=== PATIENT | male | born 1950 | race Caucasian/White ===

== ENCOUNTER 2019-09-20 03:17 | Emergency (ER) | payer OTHER ==
--- OUTSIDE RECORDS SUMMARY | 2019-09-20 03:19 | XMS REPORT ---
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
--- OUTSIDE RECORDS SUMMARY | 2019-09-20 03:19 | XMS REPORT | Continuity of Care Document ---
:1950 Author Organization [facility] t Address [address] [place] [address] Care Team Providers Name Role Phone Unavailable Unavailable Unavailable Problems Condition Condition Condition Status Onset Resolution Last Treating Co mments Source Name Details Category Date Date Treatment Clinician Date HTN HTN Problem Active [facility]hypertens Tat[facility]na kes - ion) [facility] Reflux Reflux [facility]porary Temporary Problem Active [facility] low low [facility] platelet platelet [facility] count count [facility] Elevated Elevated Problem Active [facility] random random [facility] - blood blood [facility] glucose glucose l level level Outpati ent Clinics Nocturia Nocturia Problem [facility] Benign Benign Problem Active [facility] prostatic prostatic [facility] - hyperplasi hyperplasi Me moria a with a with l lower [facility] tract Clinics symptoms symptoms Symptomati Symptomati Problem Active [facility] spider c spider [facility] varicose varicose [facility] vein vein [facility]ics High High Problem Active [facility] cholestero cholestero Tatian[place] kes - l l [facility]ics Type 2 Type [address] [facility] diabetes diabetes [facility] - mellitus mellitus [facility] a without without l complicati complicati Ou tpati on, on, ent without without Clinics long-term long-term current current use of use of insulin insulin Eosinophil Eosinophil Problem Active [facility] Allergies, Adverse Reactions, Alerts This patient has no known allergies or adverse reactions. Medications Ordered Filled Start Stop Current Ordering Indication Dosage Frequency Signature Comments Components Source Medication Medication Date Date Medication? Clinician (SIG) Name Name Lecithin Lecithin Yes Na Light as [facility] Cozaar Cozaar Yes Na Light 1.[address] [facility] Zocor Zocor Yes Na Light [address] [facility] in the [facility] - evening [facility] Terazosin Terazosin Yes Na Light [address] [facility] HCl HCl [facility] Omeprazole Omeprazole Yes Na Light [address] [facility] Flaxseed Flaxseed Yes Na Light as [facility] Oil Oil directed [facility] Glucosamine Glucosamine Yes Na Light [address] [facility] with a [facility] - meal [facility] Saw Saw Yes Na Light [address] [facility] [place] [facility] - directed [facility]ics Multi For Multi For Yes Na Light as [facility] Him 50+ Him 50+ directed [facility] Beta Beta Yes Na Light as [facility] Carotene Carotene directed [place] - [facility] N[place] Yes Na Light as [facility] (Urtica (Urtica directed [facility] - [place]) [place]) [facility] Vitamin B Vitamin B Yes Na Light as [facility] Complex Complex directed [facility] Potassium Potassium Yes Na Light [address] [facility] Vitamin E Vitamin E Yes Na Light [address] [facility] Magnesium Magnesium Yes Na Light [address] [facility] with a [facility] - meal [facility] Vitamin D3 Vitamin D3 Yes Na Light [address] [facility] MSM MSM Yes Na Light as [facility] Vitamin C Vitamin C Yes Na Light [address] [facility] Procedures This patient has no known procedures. Encounters Start End Encounter Admission Attending Care Care Encounter Source Date/Time Date/Time Type Type Clinicians Facility Department ID 2019-08-28 2019-08-28 Outpatient Dre Snow [id number] [facility] 09:23:00 09:23:00 t [employer] [place] [facility] - [facility] Medicine Outpati ent Clinics 2019-05-11 2019-05-11 [facility] [id number] [facility] 14:20:00 14:20:00 t Roby Roby [employer] s - Drive [facility] Medicine Outpati ent Clinics 2019-04-26 2019-04-26 [facility] [id number] [facility] 16:27:00 16:27:00 t [facility]y [employer] - [facility] Medicine Outpati ent Clinics 2019-04-12 2019-04-12 [facility] [id number] [facility] 11:39:00 11:39:00 t [place]y [employer] [facility] - [facility] Medicine Outpati ent Clinics 2019-01-12 2019-01-12 [facility] [id number] [facility] 13[facility]40:00 13:40:00 t [employer] - [facility] Medicine Outpati ent Clinics 2018-10-13 2018-10-13 [facility] [id number] [facility] 14[facility]30:00 14:30:00 t Roby [employer] [facility] - [facility] Medicine Outpati ent Clinics 2018-10-13 2018-10-13 [facility] [id number] 14:00:00 14:00:00 t Roby [employer] [facility] Medicine Outpati ent Clinics 2018-10-04 2018-10-04 [facility] [id number] 13:32:00 13:32:00 t Roby [employer] [facility] Medicine Outpati ent Clinics 2018-04-14 2018-04-14 [facility] [id number] [facility] 14:00:00 14:00:00 t Roby [employer] [facility] - [facility] Medicine Outpati ent Clinics Results This patient has no known results.
[2019-09-20 04:00] LABS: Absolute Lymphocytes (CBC) 1.1 K/uL (0.7-4.9); Basophils % 0.6 % (0-1.3); Hematocrit 39.7 % (39.6-49.0); Lymphocytes % 12.6 % (15.3-44.8); RBC Red Blood Cell Count 4.41 M/uL (4.33-5.43)
[2019-09-20 04:09] LABS: Albumin 4.2 g/dL (3.4-5.0); Bilirubin Direct 0.2 mg/dL (0-0.2); Bilirubin Total 0.7 mg/dL (0.2-1.0); Potassium 3.8 mmol/L (3.5-5.1); Protein, Total 7.5 g/dL (6.4-8.2)
[2019-09-20] MEDS ORDERED: ONDANSETRON 4 MG/2 ML VIAL ONE (04:33)
[2019-09-20] MEDS ORDERED: MORPHINE 4 MG/ML SYR ONE (04:33)
[2019-09-20 04:53] LABS: Urine Blood NEGATIVE (NEG); Urine Glucose NEGATIVE (NEG); Urine Protein NEGATIVE (NEG); Urine pH 5.5 (5.0-7.0)
--- NOTE | 2019-09-20 08:49 | ER ---
Nurse's Notes [facility] Name: Edgardo Ruiz Age: 69 yrs Sex: Male : 1950 Arrival Date: 09/20/2019 Time: 03:21 Bed 5 Private MD: Diagnosis: Abdominal and pelvic pain;Unilateral inguinal hernia, without obstruction or gangrene, not specified as recurrent Presentation: 09/19 03:40 Chief complaint: Patient states: he's been having some mild abdominal pain since Wednesday bb which has worsened and now is on his right side as well denies diarrhea but has vomited several times the pain is getting worse he was unable to lie down and get comfortable tonight, denies dysuria. Coronavirus screen: At this time, the client does not indicate any symptoms associated with coronavirus-19. Ebola Screen: No symptoms or risks identified at this time. Initial Sepsis Screen: Does the patient meet any 2 criteria? No. Patient's initial sepsis screen is negative. Does the patient have a suspected source of infection? No. Patient's initial sepsis screen is negative. Risk Assessment: Do you want to hurt yourself or someone else? Patient reports no desire to harm self or others. Onset of symptoms was September 18, 2019. 03:40 Method Of Arrival: Ambulatory bb 03:40 Acuity: JOSE L 3 bb Triage Assessment: 03:46 General: Appears in no apparent distress. uncomfortable. bb Historical: - Allergies: 03:46 No Known Allergies; bb - Home Meds: 03:46 simvastatin 40 mg Oral tab 1 tab once daily [Active]; omeprazole 20 mg Oral cpDR 1 cap bb once daily [Active]; losartan potassium 75 mg daily [Active]; terazosin 2 mg oral cap 1 cap three times a day [Active]; B-12 daily [Active]; Feosol Oral [Active]; - PMHx: 03:46 Hypertension; Hyperlipidemia; bb 09:00 Low platelets; aa5 - PSHx: 03:48 Hernia repair; right hydrocele; bb - Immunization history:: Adult Immunizations unknown. - Social history:: Smoking status: Patient denies any tobacco usage or history of. Patient/guardian denies using alcohol. Screenin:44 Abuse screen: Denies threats or abuse. Denies injuries from another. Nutritional rr5 screening: No deficits noted. Tuberculosis screening: No symptoms or risk factors identified. Fall Risk IV access (20 points). Total Mcclure Fall Scale indicates No Risk (0-24 pts). Assessment: 03:44 General: Appears in no apparent distress. uncomfortable, Behavior is calm, cooperative, rr5 appropriate for age. Pain: Complains of pain in right upper quadrant Pain radiates to anterior aspect of right lateral abdomen Pain Quality of pain is described as aching, Pain began gradually, Is intermittent. Neuro: Level of Consciousness is awake, alert, obeys commands, Oriented to person, place, time, situation. Cardiovascular: Capillary refill < 3 seconds Patient's skin is warm and dry. Respiratory: Airway is patent Respiratory effort is even, unlabored, Respiratory pattern is regular, symmetrical. GI: Abdomen is round non-distended, Bowel sounds Abd is soft and non tender Reports upper abdominal pain, vomiting. : Denies burning with urination, pain. EENT: No signs and/or symptoms were reported regarding the EENT system. Derm: Skin is intact, is healthy with good turgor, Skin temperature is warm. Musculoskeletal: Circulation, motion, and sensation intact. Capillary refill < 3 seconds. 04:29 Reassessment: pt is A\T\O x 4, appears in pain medicated see MAR pt transported to CT via bb stretcher with distribution field technician. 04:47 Reassessment: Patient appears in no apparent distress at this time. Patient is alert, rr5 oriented x 3, equal unlabored respirations, skin warm/dry/pink. awaiting for CT result Patient states symptoms have improved. 05:45 Reassessment: Patient appears in no apparent distress at this time. Patient and/or rr5 family updated on plan of care and expected duration. Pain level reassessed. Patient is alert, oriented x 3, equal unlabored respirations, skin warm/dry/pink. reassessment done by ED provider explained the result of CT scan, to be seen by provider bertha. 06:30 Reassessment: Patient appears in no apparent distress at this time. Patient and/or rr5 family updated on plan of care and expected duration. Pain level reassessed. Patient is alert, oriented x 3, equal unlabored respirations, skin warm/dry/pink. 07:40 Reassessment: Patient is alert, oriented x 3, equal unlabored respirations, skin aa5 warm/dry/pink. Pt sitting up on chair, pt states he is uncomfortable on stretcher. Pt notified of wait time to be evaluated by Dr. Perez (General surgeon), pt verbalizes understanding. . 07:45 Reassessment: Pt ambulatory to restroom. . aa5 07:50 Reassessment: Dr. Perez looking for pt, Dr. Perez notified pt is in restroom at aa5 this time. . 08:24 Reassessment: Dr. Perez at bedside speaking with pt. . aa5 09:00 Reassessment: Patient is alert, oriented x 3, equal unlabored respirations, skin aa5 warm/dry/pink. To bedside to d/c pt home, pt states he cannot take ibuprofen or NSAIDS due to hx of low platelets. Dr. Villanueva notified. . 09:15 Reassessment: DR. Villanueva at bedside speaking to pt. . aa5 09:33 Reassessment: Patient is alert, oriented x 3, equal unlabored respirations, skin aa5 warm/dry/pink. Vital Signs: 03:40 BP 163 / 93; Pulse 71; Resp 16 S; Temp 98.9(O); Pulse Ox 97% on R/A; Weight 70.31 kg bb (R); Height 5 ft. 8 in. (172.72 cm) (R); Pain 8/10; 04:47 BP 142 / 78; Pulse 79; Resp 16; Pulse Ox 100% ; Pain 5/10; rr5 05:59 BP 141 / 74; Pulse 70; Resp 19; Pulse Ox 99% ; rr5 07:40 BP 144 / 63; Pulse 63; Resp 18 S; Temp 98.4(O); Pulse Ox 98% on R/A; Pain 5/10; aa5 09:00 BP 142 / 69; Pulse 65; Resp 18 S; Pulse Ox 100% on R/A; aa5 03:40 Body Mass Index 23.57 (70.31 kg, 172.72 cm) bb ED Course: 03:21 Patient arrived in ED. cl3 03:26 Shayne Bill, RN is Primary Nurse. rr5 03:43 Triage completed. bb 03:44 Patient has correct armband on for positive identification. Placed in gown. Bed in low rr5 position. Call light in reach. Side rails up X2. Pulse ox on. NIBP on. 03:46 Arm band placed on Patient placed in an exam room, on a stretcher, on pulse oximetry. bb 03:52 Inserted saline lock: 20 gauge in right antecubital area, using aseptic technique. jb5 03:52 Basic Metabolic Panel Sent. jb5 03:52 CBC with Diff Sent. jb5 03:52 Hepatic Function Sent. jb5 03:52 Lipase Sent. jb5 04:00 Satinder Shaffer MD is Attending Physician. tw4 04:46 CT Abd/Pelvis - IV Contrast Only In Process Unspecified. EDMS 07:14 Attending Physician role handed off by Satinder Shaffer MD kdr 07:14 Franklin Villanueva MD is Attending Physician. kdr 08:47 Evaristo Perez MD is Referral Physician. kdr 09:00 No provider procedures requiring assistance completed. IV discontinued, intact, aa5 bleeding controlled, No redness/swelling at site. Pressure dressing applied. Administered Medications: 04:26 Drug: Zofran (Ondansetron) 4 mg Route: IVP; Site: right antecubital; bb 04:29 Drug: morphine 4 mg {Note: RASS 0.} Route: IVP; Site: right antecubital; bb Outcome: 08:48 Discharge ordered by . kdr 09:33 Discharged to home ambulatory, with family. aa5 09:33 Condition: stable 09:33 Discharge instructions given to patient, Instructed on discharge instructions, follow up and referral plans. medication usage, Demonstrated understanding of instructions, follow-up care, medications, Prescriptions given X 1. 09:34 Patient left the ED. aa5 Signatures: Dispatcher [employer] EDKS Franklin Villanueva MD MD kdr Raina Hinton, RN RN bb Kaur Ruiz, RN RN aa5 Charisse Desir jb5 Satinder Shaffer MD MD tw4 Shayne Bill RN RN rr5 Wan Jenkins cl3 Corrections: (The following items were deleted from the chart) 04:29 04:29 morphine 4 mg IVP in right antecubital bb bb 04:49 04:47 BP 142 / 78; Pulse 79bpm; Resp 16bpm; Pulse Ox 100%; rr5 rr5 09:21 09:10 Reassessment: Patient is alert, oriented x 3, equal unlabored respirations, skin aa5 warm/dry/pink. aa5
--- NOTE | 2019-09-20 08:49 | EDPHYS ---
Physician Documentation [facility] Name: Edgardo Ruiz Age: 69 yrs Sex: Male : 1950 Arrival Date: 09/20/2019 Time: 03:21 Bed 5 Private MD: ED Physician Franklin Villanueva HPI: 09/19 04:20 This 69 yrs old Male presents to ER via Ambulatory with complaints of tw4 Abdominal Pain, Side Pain. 04:20 The patient presents with abdominal pain in the right upper quadrant. Onset: The tw4 symptoms/episode began/occurred today. The symptoms do not radiate. Associated signs and symptoms: none. The symptoms are described as dull. Modifying factors: The symptoms are alleviated by nothing, the symptoms are aggravated by nothing. Severity of pain: At its worst the pain was moderate in the emergency department the pain is unchanged. The patient has not experienced similar symptoms in the past. Historical: - Allergies: 03:46 No Known Allergies; bb - Home Meds: 03:46 simvastatin 40 mg Oral tab 1 tab once daily [Active]; omeprazole 20 mg Oral cpDR 1 cap bb once daily [Active]; losartan potassium 75 mg daily [Active]; terazosin 2 mg oral cap 1 cap three times a day [Active]; B-12 daily [Active]; Feosol Oral [Active]; - PMHx: 03:46 Hypertension; Hyperlipidemia; bb 09:00 Low platelets; aa5 - PSHx: 03:48 Hernia repair; right hydrocele; bb - Immunization history:: Adult Immunizations unknown. - Social history:: Smoking status: Patient denies any tobacco usage or history of. Patient/guardian denies using alcohol. ROS: 04:24 Constitutional: Negative for fever, chills, and weight loss, Eyes: Negative for injury, tw4 pain, redness, and discharge, Cardiovascular: Negative for chest pain, palpitations, and edema, Respiratory: Negative for shortness of breath, cough, wheezing, and pleuritic chest pain, Back: Negative for injury and pain, MS/Extremity: Negative for injury and deformity, Skin: Negative for injury, rash, and discoloration, Neuro: Negative for headache, weakness, numbness, tingling, and seizure. 04:24 Abdomen/GI: Positive for abdominal pain. Exam: 04:24 Constitutional: This is a well developed, well nourished patient who is awake, alert, tw4 and in no acute distress. Head/Face: Normocephalic, atraumatic. Chest/axilla: Normal chest wall appearance and motion. Nontender with no deformity. No lesions are appreciated. Cardiovascular: Regular rate and rhythm with a normal S1 and S2. No gallops, murmurs, or rubs. Normal PMI, no JVD. No pulse deficits. Respiratory: Lungs have equal breath sounds bilaterally, clear to auscultation and percussion. No rales, rhonchi or wheezes noted. No increased work of breathing, no retractions or nasal flaring. Back: No spinal tenderness. No costovertebral tenderness. Full range of motion. MS/ Extremity: Pulses equal, no cyanosis. Neurovascular intact. Full, normal range of motion. Neuro: Awake and alert, GCS 15, oriented to person, place, time, and situation. Cranial nerves II-XII grossly intact. Motor strength 5/5 in all extremities. Sensory grossly intact. Cerebellar exam normal. Normal gait. 04:24 Abdomen/GI: Inspection: abdomen appears normal, Bowel sounds: diminished, Palpation: moderate abdominal tenderness, in the right upper quadrant. Vital Signs: 03:40 BP 163 / 93; Pulse 71; Resp 16 S; Temp 98.9(O); Pulse Ox 97% on R/A; Weight 70.31 kg bb (R); Height 5 ft. 8 in. (172.72 cm) (R); Pain 8/10; 04:47 BP 142 / 78; Pulse 79; Resp 16; Pulse Ox 100% ; Pain 5/10; rr5 05:59 BP 141 / 74; Pulse 70; Resp 19; Pulse Ox 99% ; rr5 07:40 BP 144 / 63; Pulse 63; Resp 18 S; Temp 98.4(O); Pulse Ox 98% on R/A; Pain 5/10; aa5 09:00 BP 142 / 69; Pulse 65; Resp 18 S; Pulse Ox 100% on R/A; aa5 03:40 Body Mass Index 23.57 (70.31 kg, 172.72 cm) MDM: 04:01 Patient medically screened. tw4 06:29 Data reviewed: vital signs, nurses notes. Data reviewed: lab test result(s), CBC, tw4 electrolytes, radiologic studies, CT scan. Data interpreted: Pulse oximetry: Interpretation: normal. Counseling: I had a detailed discussion with the patient and/or guardian regarding: the historical points, exam findings, and any diagnostic results supporting the discharge/admit diagnosis, lab results, radiology results. Medication response: morphine relieved the patient's pain. Symptoms have resolved. Response to treatment:. Physician consultation: Evaristo Perez MD was called at 05:30, was contacted at 05:30, regarding patient's condition, need to come to ED to see patient, and will see patient in ED. 07:18 ED course: The patient is stable in the ED and awaiting Dr. Perez to arrival and kdr evaluate patient.. 08:54 ED course: Dr. Perez was in the department to evaluate the patient and he kdr recommended no further immediate action at this time. Further, the patient was to follow-up with him in his office in 48 hours.. 08:54 Special discussion: Based on the patient's Hx, exam, and Dx evaluation, there is no kdr indication for emergent surgery or inpatient Tx. It is understood by the patient/guardian that if the Sx's persist or worsen they need to return immediately for re-evaluation. I discussed with the patient/guardian in detail that at this point there is no indication for admission to the hospital. It is understood, however, that if the symptoms persist or worsen the patient needs to return immediately for re-evaluation. 09/19 03:40 Order name: Basic Metabolic Panel; Complete Time: 04:22 09/19 04:22 Interpretation: Normal except: GLUC 110; GFR 74. 09/19 03:40 Order name: CBC with Diff; Complete Time: 04:22 09/19 04:22 Interpretation: Normal except: LYM% 12.6; TARIK% 78.4. 09/19 03:40 Order name: Hepatic Function; Complete Time: 04:22 09/19 04:56 Interpretation: Within normal limits: AST 17. 09/19 03:40 Order name: Lipase; Complete Time: 04:22 09/19 04:23 Interpretation: Within normal limits: LIP 237. 09/19 03:56 Order name: Urine Dipstick--Ancillary (enter results); Complete Time: 04:55 tt3 09/19 04:03 Order name: CT Abd/Pelvis - IV Contrast Only tw4 09/19 03:40 Order name: IV Saline Lock; Complete Time: 03:51 09/19 03:40 Order name: Labs collected and sent; Complete Time: 03:51 09/19 03:47 Order name: Urine Dipstick-Ancillary (obtain specimen); Complete Time: 03:51 rr5 Administered Medications: 04:26 Drug: Zofran (Ondansetron) 4 mg Route: IVP; Site: right antecubital; bb 04:29 Drug: morphine 4 mg {Note: RASS 0.} Route: IVP; Site: right antecubital; bb Disposition: 09/20/19 08:48 Discharged to Home. Impression: Abdominal and pelvic pain, Unilateral inguinal hernia, without obstruction or gangrene, not specified as recurrent. - Condition is Stable. - Discharge Instructions: Hernia, Adult, Abdominal Pain, Adult, [id number]. - Prescriptions for Tramadol 50 mg Oral Tablet - take 1 tablet by ORAL route every 8 hours as needed; 12 tablet. - Medication Reconciliation Form, Thank You Letter form. - Follow up: Private Physician; When: 48 Hours; Reason: If symptoms return, Further diagnostic work-up, Recheck today's complaints, Continuance of care, Re-evaluation by your physician. Follow up: Evaristo Perez MD; When: 48 Hours; Reason: Further diagnostic work-up, Recheck today's complaints, Continuance of care, Re-evaluation by your physician. - Problem is new. - Symptoms have improved. Signatures: Dispatcher [employer] EDMS Franklin Villanueva MD MD [facility] Raina Hinton RN RN bb Kaur Ruiz, RN RN aa5 Satinder Shaffer MD MD tw4 Shayne Bill, RN RN rr5 Corrections: (The following items were deleted from the chart) 04:56 04:23 Within normal limits. 09:34 08:48 09/20/2019 08:48 Discharged to Home. Impression: Abdominal and pelvic pain; aa5 Unilateral inguinal hernia, without obstruction or gangrene, not specified as recurrent. Condition is Stable. Forms are Medication Reconciliation Form, Thank You Letter, Antibiotic Education, Prescription Opioid Use. Follow up: Private Physician; When: 48 Hours; Reason: If symptoms return, Further diagnostic work-up, Recheck today's complaints, Continuance of care, Re-evaluation by your physician. Follow up: Evaristo Perez; When: 48 Hours; Reason: Further diagnostic work-up, Recheck today's complaints, Continuance of care, Re-evaluation by your physician. Problem is new. Symptoms have improved. kdr
[2019-09-20 09:45] VITALS: BP 144/63; TEMP 98.4; O2SAT 98
--- NOTE | 2019-09-20 10:12 | RAD REPORT ---
EXAM DESCRIPTION: CT - Abdomen Pelvis W Contrast - 09/20/2019 6:37 am CLINICAL HISTORY: The patient is 69 years old and is Male; ABD PAIN TECHNIQUE: Axial computed tomography images of the abdomen and pelvis with intravenous contrast. S agittal and coronal reformatted images were created and reviewed. This CT exam was performed using one or more of the following dose reduction techniques: automated exposure control, adjustment of t he mA and/or kV according to patient size, and/or use of iterative reconstruction technique. COMPARISON: No relevant prior studies available. FINDINGS: LUNG BASES: Unremarkable. No mass. No consolidation. MEDIASTINUM: A moderate sized hiatal hernia is present. ABDOMEN: LIVER: Innumerable low attenuating lesions are present throughout the liver, the largest within the left hepatic lobe measures grossly 3.1 cm. These most likely represent cysts. GALLBLADDER AND BILE DUCTS: No calcified stones. No ductal dilation. PANCREAS: No ductal dilation. No mass. SPLEEN: A splenule is present within the left upper quadrant. The spleen is unremarkable. ADRENALS: Unremarkable. No mass. KIDNEYS AND URETERS: A 1.5 cm left renal cyst is present. A 1 cm right renal cyst is present. No follow-up imaging is recommended. The kidneys enhance symmetrically. There is no obstructing renal o r ureteral calculus. STOMACH AND BOWEL: The stomach is minimally distended. The small bowel is normal in caliber. A m oderate amount stool is present throughout colon. There is no mucosal thickening or evidence of bowel obstruction. PELVIS: APPENDIX: The appendix is normal in caliber without surrounding inflammation. BLADDER: Unremarkable. No mass. REPRODUCTIVE: Unremarkable as visualized. ABDOMEN and PELVIS: INTRAPERITONEAL SPACE: Unremarkable. No free air. No significant fluid collection. BONES/JOINTS: No acute fracture. SOFT TISSUES: A large fat and fluid containing right inguinal hernia is present. VASCULATURE: Unremarkable. No abdominal aortic aneurysm. LYMPH NODES: Unremarkable. No enlarged lymph nodes. IMPRESSION: 1. Large fat and fluid containing right inguinal hernia. 2. Normal appendix. No bowel obstruction. Electronically signed by: Rosenda Arroyo MD 09/20/2019 5:15 AM CDT Due to temporary technical issues with the PACS/Fluency reporting system, reports are being signed by the in house radiologist without review as a courtesy to ensure prompt reporting. The interpreting r adiologist is fully responsible for the content of the report.
--- NOTE | 2019-09-20 12:16 | CON ---
Reason For Consultation: History of right inguinal hernia. History Of Present Illness: This is a case of a 69-year-old patient, who comes to us last night with epigastric pain. He say his pain was in that area, he believe is related to change in his diet. As per him, he read that by taking a lot of iron pills that will improve his WBC count and platelet cou nt. He followed that advice and basically developed abdominal pain after taking those medications. During the workup, the patient found to have also a right inguinal hernia and a surgical consult was obtained for evaluation of that hernia. The patient apparently came overnight. 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 He never have any pain over the right inguinal region. He has history of repair in that area, he believes was a hydrocele about 2 years ago in [place]. He n oticed he has bulging in that area, but he has not fix the hernia yet is chronic. Allergies: NONE. Medications: Review including an iron pills. Past Medical History: Hypertension, hyperlipidemia, low platelets. Past Surgical History: Right hydrocele and left inguinal hernia repair. Social History: He does not smoke. He does not drink alcohol. Review of Systems: No shortness of breath. No chest pain. No fever. Ten points otherwise unremarkable. No dysuria, h ematuria, hematochezia, or melena. Last colonoscopy, he believes was more than 5 years ago. Physical Examination: General: The patient is awake and alert. HEENT: Pupils are equal and reactive, anicteric. Neck: Supple. Chest: Clear. Abdomen: Soft and depressible. No guarding or rebound. No perineal signs. The patient has a right inguinal hernia. No tenderness in that region. Extremities: Good capillary refill. Rectal: Deferred. Genitalia: Deferred. Imaging: CAT scan of the abdomen and pelvis shows once again a right inguinal hernia, well large jose unt of fat on it. No intestines. No appendicitis. No bowel obstruction. The patient was also expl ained about the renal cyst. He has to follow with his urologist. He also has some lesions on the li sandie, one of them is about 3.1 cm. He was advised to see his gold layer and primary doctor. Assessment: A 69-year-old patient came last night with epigastric pain. Pain is gone right now. Fi nd to have in the workup a right inguinal hernia, although he is asymptomatic from the hernia at this moment. I explained to him that we might have to fix that at one point, he preferred not to do at t his time. I do agree with him as long as the hernia does not become tender, or developed any bowel o bstruction, but the condition that elective he should fix that before that happen. In the meantime, he must see his gold layer. I believe this could be due for colonoscopy. He also taking pil ls and having stomach pain and this is iron may be affecting his stomach and also he has his liver le luises that need to be checked on the study. Although most likely represent a cyst, I cannot rule out this moment. He need the expert for that area. So, he is going to be follow up in my office in the next 48 hours. If the pain comes back once again, he is going to come to the ER immediately. So, he preferred to do the case electively and not at this moment and we will comply with his wishes. MOISÉS/LUCY Voice ID: [id number] Report ID: [id number]
== END 2019-09-20 09:34 | disposition home or self-care (01) ==
LOC: ER 03:17
DX: K40.90 Unilateral inguinal hernia, without obstruction or gangrene, not specified as recurrent (principal); R10.2 Pelvic and perineal pain; I10 Essential (primary) hypertension; E78.5 Hyperlipidemia, unspecified
CPT/HCPCS: 85025; 80048; 36415; 80076; 81003; 83690; 74177; Q9967; J2405; 96374; 96375; 99284